=== PATIENT | male | born 1975 | race Caucasian/White ===

== ENCOUNTER 2020-12-02 20:49 | Emergency (ER) | payer OTHER ==
--- NOTE | 2020-12-02 20:53 | EDM.PDOC ---
<Maria M Boss - Last Filed: 12/03/20 04:23> ED HPI GENERAL MEDICAL PROBLEM - General Chief Complaint: Respiratory Problem Stated Complaint: COVID, TROUBLE BREATHING Time Seen by Provider: 12/02/20 20:50 - Related Data Allergies Allergy/AdvReac Type Severity Reaction Status Date / Time No Known Allergies Allergy Verified 12/02/20 20:56 Home Meds: Home Meds Albuterol Sulfate [Proair Respiclick] 90 mcg IH Q6HR PRN #1 canister 12/02/20 [Rx] Azithromycin [Zithromax] 250 mg PO DAILY #6 tab 12/02/20 [Rx] predniSONE [Prednisone] 60 mg PO DAILY 5 Days #15 tablet 12/02/20 [Rx] ED ROS GENERAL - Review of Systems Review Of Systems: See Below (See dictation) ED EXAM, GENERAL - Physical Exam Exam: See Below (See dictation) Course - Re-Assessments/Exams Free Text/Narrative Re-Assessment/Exam: Received the patient in signout from Lucie Carpenter NP. Pending labs and x-ray results. The patient is Covid positive. X-ray without any signs of overt/severe infection. 12/02/20 23:05 I reassessed the patient. He is in no acute distress. His oxygen saturation is 95 to 96% on room air. He does report he feels much better. Discussed all results including positive COVID test. Discussed need for isolation. Discussed plan of care with the patient. He agrees with this plan. He is feeling well and stable for outpatient follow-up. I did discuss at length with the patient monitoring his symptoms, and return to ER for worsening shortness of breath or if oxygen levels below 90%, we discussed plan to obtain a pulse oximeter and monitor his 02 saturation. He agrees with this plan. Departure - Departure Time of Disposition: 23:24 Disposition: Home, Self-Care 01 Clinical Impression: COVID-19 - Discharge Information Prescriptions: predniSONE [Prednisone] 60 mg PO DAILY 5 Days #15 tablet Albuterol Sulfate [Proair Respiclick] 90 mcg IH Q6HR PRN #1 canister PRN Reason: Dyspnea Azithromycin [Zithromax] 250 mg PO DAILY #6 tab Instructions: COVID-19 Frequently Asked Questions, Prone Position Therapy, COVID-19, What You Should Know About COVID-19 to Protect Yourself and Others - CDC, 10 Things You Can Do to Manage Your COVID-19 Symptoms at Home - CDC, Upper Respiratory Infection, Adult, [id number], COVID-19: How to Protect Yourself and Others - CDC, How to Safely Wear and Take Off a Mask - CDC, COVID-19: Quarantine vs. Isolation - CDC, Prevent the Spread of COVID-19 if You Are Sick - CDC Referrals: PCP,None [Primary Care Provider] - Forms: ED Department Discharge Additional Instructions: The following information is given to patients seen in the emergency department who are being discharged to home. This information is to outline your options for follow-up care. We provide all patients seen in our emergency department with a follow-up referral. The need for follow-up, as well as the timing and circumstances, are variable depending upon the specifics of your emergency department visit. If you don't have a primary care physician on staff, we will provide you with a referral. We always advise you to contact your personal physician following an emergency department visit to inform them of the circumstance of the visit and for follow-up with them and/or the need for any referrals to a consulting specialist. The emergency department will also refer you to a specialist when appropriate. This referral assures that you have the opportunity for follow-up care with a specialist. All of these measure are taken in an effort to provide you with optimal care, which includes your follow-up. Under all circumstances we always encourage you to contact your private physician who remains a resource for coordinating your care. When calling for follow-up care, please make the office aware that this follow-up is from your recent emergency room visit. If for any reason you are refused follow-up, please contact the [facility] Emergency Department at and asked to speak to the emergency department charge nurse. [facility] [address] [place] [id number] [facility] [address] [place] [address] <Andrade Carpenter E - Last Filed: 12/03/20 13:41> ED HPI GENERAL MEDICAL PROBLEM - General Source of Information: Reports: Patient History Limitations: Reports: No Limitations - History of Present Illness INITIAL COMMENTS - FREE TEXT/NARRATIVE: HISTORY AND PHYSICAL: History of present illness: Patient is a 45-year-old male who presents to the emergency room with complaints of shortness of breath, headache and nonproductive cough. He states he has had several family members who recently had COVID-19, was exposed to them on 11/21/2020. He started to develop symptoms on November 25. He states he started to have increased shortness of breath and fevers of 102 Fahrenheit at home. He has been taking Tylenol, ibuprofen and Mucinex which did seem to help his symptoms until the last 2 to 3 days. He states he has been trying to take [id number] medications but does not feel like he is improving. He describes his chest is feeling tight like he is unable to take a full deep breath. Complaining of a generalized headache from "coughing so much". He is also concerned he is dehydrated as "I don't have enough energy to do anything like eat or drink". Review of systems: As per history of present illness and below otherwise all systems reviewed and negative. Past medical history: As per history of present illness and as reviewed below otherwise noncontributory. Surgical history: As per history of present illness and as reviewed below otherwise noncontributory. Social history: See social history for further information Family history: As per history of present illness and as reviewed below otherwise noncontributory. Physical exam: General: Well developed and well nourished 45 year old male. Alert and orientated x 3. Nontoxic in appearance and in no acute distress. Vital signs are stable and have been reviewed by me. Nursing notes were reviewed. HEENT: Atraumatic, normocephalic, pupils equal and reactive bilaterally, negative for conjunctival pallor or scleral icterus, mucous membranes dry/tachy, TMs normal bilaterally, throat clear, neck supple, nontender, trachea midline. No drooling or trismus noted. No meningeal signs. No hot potato voice noted. Lungs: Slightly diminished to auscultation bilaterally. No wheezes, rales, or rhonchi. Chest nontender. Normal work of breathing, no accessory muscles used. Heart: S1S2, tachycardia with rate of 104, regular rhythm without overt murmur, gallops, or rubs. No JVD. No peripheral edema Abdomen: Soft, nondistended, nontender. Normoactive bowel sounds. Negative for masses or costovertebral tenderness. Skin: Intact, warm, dry. No lesions or rashes noted. Hematologic: No petechiae or purpra. Mucosa appropriate color and normal nail bed color and refill. Extremities: Atraumatic, moves all extremities per self without difficulty or deficits, negative for cords or calf pain. Neurovascular unremarkable. Neuro: Awake, alert, oriented. Cranial nerves II through XII unremarkable. Cerebellum unremarkable. Motor and sensory unremarkable throughout. Exam nonfocal. Psychiatric: Mood and affect are appropriate. Normal thought process. Answering questions appropriately. Notes: *This patient was seen and evaluated during the 2019 SARS-CoV-2 novel coronavirus pandemic period. Community viral transmission is ongoing at time of this encounter and the emergency department is operating under pandemic response procedures. Patient is a 45-year-old male who presents to the emergency room with concerns he has COVID-19. He states he has had a headache, shortness of breath and nonproductive cough for approximately 1 week. Initially his symptoms were responsive to decl-hhb-umpbarm medications over the past 2 to 3 days he states he feels worse. His physical exam shows he does appear clinically dehydrated, his oral mucosa is dry/tacky. He does have a dry nonproductive cough with diminished lung sounds bilaterally. He is agreeable to basic lab work. I will give him 1 L of fluids and Decadron while waiting for results. Few labs and CXR results are pending, Dr Boss will follow/assume care of patient and disposition appropriately. Diagnostics: CBC, CMP, troponin, EKG, chest x-ray, COVID-19 Therapeutics: IV fluid, Decadron Impression: COVID-19 Definitive disposition and diagnosis as appropriate pending reevaluation and review of above. headache Pain Score (Numeric/FACES): 4 Course - Vital Signs Last Recorded V/S: Last Vital Signs Temp 100.8 F H 12/02/20 20:50 Pulse 82 12/03/20 00:10 Resp 19 12/03/20 00:10 BP 122/77 12/03/20 00:10 Pulse Ox 94 L 12/03/20 00:10 - Orders/Labs/Meds Orders: Active Orders 24 hr Category Date Time Status Saline Lock Insert [OM.PC] Stat Oth 12/02/20 21:00 Ordered Labs: Laboratory Tests 12/02/20 12/02/20 12/02/20 Range/Units 21:10 21:10 21:10 WBC 3.50 L (4.0-11.0) K/uL RBC 5.34 (4.50-5.90) M/uL Hgb 16.8 (13.0-17.0) g/dL Hct 46.9 (38.0-50.0) % MCV 87.8 (80.0-98.0) fL MCH 31.5 (27.0-32.0) pg MCHC 35.8 (31.0-37.0) g/dL RDW Std Deviation 42.1 (28.0-62.0) fl RDW Coeff of Margaret 13 (11.0-15.0) % Plt Count 130 L (150-400) K/uL MPV 10.50 (7.40-12.00) fL Neut % (Auto) 73.4 (48.0-80.0) % Lymph % (Auto) 20.3 (16.0-40.0) % [place] % (Auto) 5.7 (0.0-15.0) % Eos % (Auto) 0.3 (0.0-7.0) % Baso % (Auto) 0.3 (0.0-1.5) % Neut # (Auto) 2.6 (1.4-5.7) K/uL Lymph # (Auto) 0.7 (0.6-2.4) K/uL [place] # (Auto) 0.2 (0.0-0.8) K/uL Eos # (Auto) 0.0 (0.0-0.7) K/uL Baso # (Auto) 0.0 (0.0-0.1) K/uL Nucleated RBC % 0.0 /100WBC Nucleated RBCs # 0 K/uL Sodium 136 (136-148) mmol/L Potassium 4.0 (3.5-5.1) mmol/L Chloride 100 (98-107) mmol/L Carbon Dioxide 27.1 (21.0-32.0) mmol/L BUN 15 (7.0-18.0) mg/dL Creatinine 1.2 (0.8-1.3) mg/dL Est Cr Clr Drug Dosing 70.15 mL/min Estimated GFR (MDRD) > 60.0 ml/min Glucose 104 (74-106) mg/dL Lactic Acid 0.6 (0.4-2.0) mmol/L Calcium 8.3 L (8.5-10.1) mg/dL Total Bilirubin 0.6 (0.2-1.0) mg/dL AST 50 H (15-37) IU/L ALT 78 H (14-63) IU/L Alkaline Phosphatase 105 (46-116) U/L Troponin I < 0.050 (0.000-0.056) ng/mL Total Protein 7.0 (6.4-8.2) g/dL Albumin 4.0 (3.4-5.0) g/dL Globulin 3.0 (2.6-4.0) g/dL Albumin/Globulin Ratio 1.3 (0.9-1.6) SARS-CoV-2 RNA (JC) (NEGATIVE) 12/02/20 Range/Units 21:30 WBC (4.0-11.0) K/uL RBC (4.50-5.90) M/uL Hgb (13.0-17.0) g/dL Hct (38.0-50.0) % MCV (80.0-98.0) fL MCH (27.0-32.0) pg MCHC (31.0-37.0) g/dL RDW Std Deviation (28.0-62.0) fl RDW Coeff of Margaret (11.0-15.0) % Plt Count (150-400) K/uL MPV (7.40-12.00) fL Neut % (Auto) (48.0-80.0) % Lymph % (Auto) (16.0-40.0) % [place] % (Auto) (0.0-15.0) % Eos % (Auto) (0.0-7.0) % Baso % (Auto) (0.0-1.5) % Neut # (Auto) (1.4-5.7) K/uL Lymph # (Auto) (0.6-2.4) K/uL [place] # (Auto) (0.0-0.8) K/uL Eos # (Auto) (0.0-0.7) K/uL Baso # (Auto) (0.0-0.1) K/uL Nucleated RBC % /100WBC Nucleated RBCs # K/uL Sodium (136-148) mmol/L Potassium (3.5-5.1) mmol/L Chloride (98-107) mmol/L Carbon Dioxide (21.0-32.0) mmol/L BUN (7.0-18.0) mg/dL Creatinine (0.8-1.3) mg/dL Est Cr Clr Drug Dosing mL/min Estimated GFR (MDRD) ml/min Glucose (74-106) mg/dL Lactic Acid (0.4-2.0) mmol/L Calcium (8.5-10.1) mg/dL Total Bilirubin (0.2-1.0) mg/dL AST (15-37) IU/L ALT (14-63) IU/L Alkaline Phosphatase (46-116) U/L Troponin I (0.000-0.056) ng/mL Total Protein (6.4-8.2) g/dL Albumin (3.4-5.0) g/dL Globulin (2.6-4.0) g/dL Albumin/Globulin Ratio (0.9-1.6) SARS-CoV-2 RNA (JC) POSITIVE H (NEGATIVE) Meds: Medications Discontinued Medications Generic Name Dose Route Start Last Admin Trade Name Freq PRN Reason Stop Dose Admin Dexamethasone 6 mg 12/02/20 21:02 12/02/20 21:20 Dexamethasone 10 Mg/Ml Sdv IVPUSH 12/02/20 21:03 6 mg ONETIME ONE Administration Sodium Chloride 1,000 mls @ 999 mls/hr 12/02/20 20:59 12/02/20 21:18 Normal Saline IV 12/02/20 21:59 999 mls/hr STAT ONE Administration Ketorolac Tromethamine 30 mg 12/02/20 20:59 12/02/20 21:20 Ketorolac 30 Mg/Ml Sdv IVPUSH 12/02/20 21:00 30 mg ONETIME ONE Administration Sodium Chloride 10 ml 12/02/20 21:00 Sodium Chloride 0.9% 10 Ml Syringe FLUSH ASDIRECTED PRN Keep Vein Open Sodium Chloride 2.5 ml 12/02/20 21:00 Sodium Chloride 0.9% 2.5 Ml Syringe FLUSH ASDIRECTED PRN Keep Vein Open - My Orders Last 24 Hours: My Active Orders 12/02/20 21:00 Saline Lock Insert [OM.PC] Stat - Assessment/Plan Last 24 Hours: My Active Orders 12/02/20 21:00 Saline Lock Insert [OM.PC] Stat
[2020-12-02] MEDS ORDERED: Ketorolac 30 MG/ML SDV IVPUSH ONE (20:59)
[2020-12-02] MEDS ORDERED: Sodium Chloride 0.9% 1,000 ML IV ONE (20:59)
[2020-12-02] MEDS ORDERED: Sodium Chloride 0.9% 10 ML Syringe FLUSH PRN (21:00)
[2020-12-02] MEDS ORDERED: Sodium Chloride 0.9% 2.5 ML Syringe FLUSH PRN (21:00)
[2020-12-02] MEDS ORDERED: Dexamethasone 10 MG/ML SDV IVPUSH ONE (21:02)
--- NOTE | 2020-12-02 21:21 | PCM.EKG ---
#1 Interpretation EKG Date: 12/02/20 Time: 21:13 Rhythm: NSR Rate (Beats/Min): 92 [place]: RAD-Right [place] Deviation P-Wave: Present QRS: Normal ST-T: Normal QT: Normal
[2020-12-02 21:44] LABS: BLOOD UREA NITROGEN,BUN 15 mg/dL (7.0-18.0); CARBON DIOXIDE,CO2 27.1 mmol/L (21.0-32.0); CHLORIDE,CL 100 mmol/L (98-107); GLUCOSE RANDOM 104 mg/dL (74-106); SODIUM,NA 136 mmol/L (136-148)
--- NOTE | 2020-12-02 22:07 | CR ---
INDICATION: COVID-19 symptoms TECHNIQUE: Chest radiograph 1 view COMPARISON: None FINDINGS: Mediastinum: The mediastinum is normal in appearance. The heart silhouette is normal in size and morphology. Lung: Both lungs are unremarkable in appearance with small lung volumes. No sign of pleural effusion seen. No pneumothorax is identified. Bone and Soft tissue: Unremarkable for age. IMPRESSION: 1. No acute cardiopulmonary disease is seen. Dictated by: Robert Melgar MD @ 12/02/2020 22:06:37 (Electronically Signed)
== END 2020-12-03 00:10 | disposition home or self-care (01) ==
LOC: MW.ED 20:49
DX: U07.1 COVID-19 (principal)
CPT/HCPCS: 36415; 71045; 80053; 83605; 84484; 85025; 87635; 93005; 96374; 96375; 99285; J1100; J1885; J7030; U0002